=== PATIENT | female | born 1995 | race Two or more races ===

== ENCOUNTER → 2017-11-30 | Outpatient (CLI) | payer MEDICARE, MEDICAID ==
[2017-11-30 10:48] LABS: CHOLESTEROL 164.19 mg/dL (0-200)
== END ==
LOC: OD 09:04
PROVIDERS: ATTEND Psychiatry & Neurology Psychiatry
DX: F43.23 Adjustment disorder with mixed anxiety and depressed mood (principal); Z79.899 Other long term (current) drug therapy
CPT/HCPCS: 36415; 82465; 83036; 83721; 84478

== ENCOUNTER 2018-01-01 10:09 | Emergency (ER) | payer MEDICARE, MEDICAID ==
[2018-01-01 10:22] VITALS: BP 125/76
--- NOTE | 2018-01-01 10:41 | ER Document Report ---
HPI - HPI Pain Level: 2 Notes: Patient is a 22-year-old female who presents to the ED complaining of right eye redness and drainage 2 days. Patient does not wear contacts. Patient states that she does have some irritation to her eye, but is able to move around without any difficulties or associated pain. Patient states that she has had matting in the mornings. She has not noticed any visual changes. She is otherwise eating and drinking without any difficulties. She is urinating normally. Denies any other recent illness. No foreign body sensation or tearing. Denies any headache, fever, head injury, neck pain, changes in vision/ speech/mentation/hearing, URI, sore throat, chest pain, palpitations, syncope, cough, shortness of breath, wheeze, dyspnea, abdominal pain, nausea/vomiting/ diarrhea, urinary retention, dysuria, hematuria, or rash. - ROS Systems Reviewed and Negative: Yes All other systems reviewed and negative Past Medical History - Social History Smoking Status: Never Smoker Chew tobacco use (# tins/day): No Frequency of alcohol use: None Drug Abuse: None Family History: Reviewed & Not Pertinent Patient has suicidal ideation: No Patient has homicidal ideation: No Renal/ Medical History: Denies: Hx Peritoneal Dialysis Vertical Provider Document - CONSTITUTIONAL Agree With Documented VS: Yes Notes: PHYSICAL EXAMINATION: GENERAL: Well-appearing, well-nourished and in no acute distress. A&Ox4 HEAD: Atraumatic, normocephalic. EYES: Pupils equal round and reactive to light, extraocular movements intact, sclera anicteric, Rt conjunctiva injected with scant purulent discharge noted. Non-tender to palp of the globe and eye itself. No surrounding erythema or swelling noted. Visual acuity 20/20 b/l and in each eye (performed by myself at bedside with my own eye chart). ENT: EAC clear b/l. TM's intact b/l without erythema, fluid, or perforation. Nares patent and without discharge. oropharynx clear without exudates. No tonsilar hypertrophy or erythema. Moist mucous membranes. No sinus tenderness. Uvula midline. No palatine shift. No airway compromise. No drooling or hoarseness. NECK: Normal range of motion, supple without lymphadenopathy. No rigidity/ meningismus. LUNGS: Breath sounds clear to auscultation bilaterally and equal. No wheezes rales or rhonchi. HEART: Regular rate and rhythm without murmurs, rubs, gallops. NEUROLOGICAL: Cranial nerves grossly intact. Normal speech, normal gait. Normal sensory, motor exams PSYCH: Normal mood, normal affect. SKIN: Warm, Dry, normal turgor, no rashes or lesions noted. - INFECTION CONTROL TRAVEL OUTSIDE OF THE [place] IN LAST 30 DAYS: No Course - Re-evaluation Re-evalutation: 01/01/18 10:38 Patient is an afebrile, well-hydrated, 22-year-old female who presents to the ED with right eye redness and drainage which I suspect to be conjunctivitis. Vitals are acceptable without any significant tachycardia, tachypnea, or hypoxia. PE is otherwise unremarkable for any focal neurological deficits. No labs or imaging warranted at this time based on H&P. Patient does not wear contacts. She does have an allergy to Bactrim. Visual acuity is intact. Patient does not have the symptomatology and presentation I would suspect for any retained corneal or lid foreign body, deep space infection including orbital cellulitis/abscess, acute glaucoma, penetrating globe injury, retinal detachment, meningitis, sepsis, fracture, compartment syndrome. I will send home with a prescription for Cipro to use as directed. Conservative measures otherwise for symptoms with proper handwashing. Recheck with your PCM in 2-3 days. Schedule a f/u with Ophthalmology next week. Return to the ED with any worsening/concerning symptoms otherwise as reviewed in discharge. Patient is in agreement. - Vital Signs Vital signs: Temp Pulse Resp BP Pulse Ox 98.1 F 92 16 125/76 99 01/01/18 10:21 01/01/18 10:21 01/01/18 10:21 01/01/18 10:21 01/01/18 10:21 Discharge - Discharge Clinical Impression: Conjunctivitis Qualifiers: Conjunctivitis type: acute Acute conjunctivitis type: unspecified Laterality: right Qualified Code(s): H10.31 - Unspecified acute conjunctivitis, right eye Condition: Stable Disposition: HOME, SELF-CARE Instructions: Eyedrop Use ([facility]), Conjunctivitis ([facility]) Additional Instructions: keep eyes clean Avoid scratching/touching eyes Wash hands regularly Use eye drops as directed Maintain adequate fluid intake tylenol/ibuprofen as needed over the counter cold medication as needed for symptoms F/u: with your PCM in 2-3 days for a recheck Schedule consult with ophthalmology this week for further evaluation and management Return to the ED with any worsening symptoms and/or development of fever, headache, changes in vision, eye pain, worsening eye redness, redness around the eyes, purulent discharge, sore throat, facial swelling, neck pain/stiffness , chest pain, palpitations, syncope, shortness of breath, trouble breathing, abdominal pain, n/v/d, blood in stool/urine, dysuria, or other worsening symptoms that are concerning to you. Prescriptions: Ciprofloxacin HCl [Ciloxan 0.3% Oph Soln 2.5 ml] 1 - 2 drop OP Q2H #1 bottle Referrals: JALEEL HANEY MD [Primary Care Provider] - 01/03/18 ELTON PERSAUD MD [ACTIVE STAFF] - 01/04/18
== END 2018-01-01 10:42 | disposition home or self-care (01) ==
LOC: ER 10:09
DX: H10.31 Unspecified acute conjunctivitis, right eye (principal); H57.11 Ocular pain, right eye
CPT/HCPCS: 99283

== ENCOUNTER 2018-01-04 06:31 | Emergency (ER) | payer MEDICARE, MEDICAID ==
[2018-01-04] MEDS ORDERED: TETRACAINE HCL 0.5% OPH SOLN 2 ML OD ONE (08:48)
--- NOTE | 2018-01-04 08:53 | ER Document Report ---
ED Eye Complaint - General Chief Complaint: Eye Pain Stated Complaint: EYE ISSUES Time Seen by Provider: 01/04/18 08:45 Mode of Arrival: Ambulatory Information source: Patient Notes: 22-year-old female presents emergency department with complaints of right eye redness, pain, discharge. Patient states that this is been going on for the last 5 days. She was seen in the emergency department 3 days ago and had an eye exam done. She was diagnosed with conjunctivitis and started on ciprofloxacin drops. Mom has been giving the drops as directed. They state no improvement in eye symptoms. Patient does not wear contacts. She has noted eye matting in the morning. No visual changes. No pain with eye movements. Diffuse irritation. No foreign body sensation. No fever, chills, facial pain, URI symptoms. No L eye involvement. TRAVEL OUTSIDE OF THE [place] IN LAST 30 DAYS: No - HPI Onset: Last week Eye location: Right Injury: No Occurred at: Home Quality of pain: Other - irritation Severity: None Pain Level: Denies Associated symptoms: Redness, Matting - Related Data Allergies/Adverse Reactions: sulfamethoxazole [From [facility]] Adverse Reaction (Verified 01/04/18 08:18) trimethoprim [From [facility]] Adverse Reaction (Verified 01/04/18 08:18) Past Medical History - Social History Smoking Status: Never Smoker Chew tobacco use (# tins/day): No Frequency of alcohol use: None Drug Abuse: None Family History: Reviewed & Not Pertinent Patient has suicidal ideation: No Patient has homicidal ideation: No Renal/ Medical History: Denies: Hx Peritoneal Dialysis Review of Systems - Review of Systems Constitutional: No symptoms reported EENT: Eye pain, Eye discharge Cardiovascular: No symptoms reported Respiratory: No symptoms reported Gastrointestinal: No symptoms reported Genitourinary: No symptoms reported Female Genitourinary: No symptoms reported Musculoskeletal: No symptoms reported Skin: No symptoms reported Hematologic/Lymphatic: No symptoms reported Neurological/Psychological: No symptoms reported -: Yes All other systems reviewed and negative Physical Exam - Vital signs Vitals: Temp Pulse Resp BP Pulse Ox 97.5 F 81 20 122/79 99 01/04/18 06:34 01/04/18 06:34 01/04/18 06:34 01/04/18 06:34 01/04/18 06:34 Interpretation: Normal - Notes Notes: PHYSICAL EXAMINATION: GENERAL: Well-appearing, well-nourished and in no acute distress. HEAD: Atraumatic, normocephalic. EYES: Pupils equal round and reactive to light, extraocular movements intact, conjunctiva is injected No steamy cornea. No fixed mid-dilated pupil. No cellulitis. ENT: Nares patent, oropharynx clear without exudates. Moist mucous membranes. NECK: Normal range of motion, supple without lymphadenopathy LUNGS: Breath sounds clear to auscultation bilaterally and equal. No wheezes rales or rhonchi. HEART: Regular rate and rhythm without murmurs ABDOMEN: Soft, nontender, nondistended abdomen. No guarding, no rebound. No masses appreciated. Female : deferred Musculoskeletal: Normal range of motion, no pitting or edema. No cyanosis. NEUROLOGICAL: Cranial nerves grossly intact. Normal speech, normal gait. Normal sensory, motor exams PSYCH: Normal mood, normal affect. SKIN: Warm, Dry, normal turgor, no rashes or lesions noted. - General General appearance: Appears well, Alert Course - Re-evaluation Re-evalutation: 01/04/18 10:01 Eye exam done. No corneal abrasion appreciated. No dendritic pattern. Chalazion seen in the upper lip. No foreign body. Mayco-pen used to take pressure. Ranges from 14-18. Visual acuity done. Patient told that she needs glasses. I discussed results with mom. Will change antibiotic drops as mom says they're not helping. Instructed mom to apply warm compress QID. I told mom they need to follow up with opthalomology. Mom is agreeable with the plan of care. - Vital Signs Vital signs: Temp Pulse Resp BP Pulse Ox 97.5 F 81 20 122/79 99 01/04/18 06:34 01/04/18 06:34 01/04/18 06:34 01/04/18 06:34 01/04/18 06:34 Discharge - Discharge Clinical Impression: Acute chalazion of right eye Condition: Good Disposition: HOME, SELF-CARE Instructions: [place] ([facility]) Prescriptions: Gentamicin Sulf/Prednisolone [Pred-G 1% Eye Drops] 5 ml OP Q1 #1 drops.susp Referrals: SHEA RAMOS MD [Primary Care Provider] - Follow up as needed ELTON PERSAUD MD [ACTIVE STAFF] - Follow up as needed
[2018-01-04 10:20] VITALS: BP 126/72
== END 2018-01-04 10:20 | disposition home or self-care (01) ==
LOC: ER 06:31
DX: H00.19 Chalazion unspecified eye, unspecified eyelid (principal); H10.9 Unspecified conjunctivitis
CPT/HCPCS: 99283